=== PATIENT | male | born 1975 | race Hispanic/Latino ===

== ENCOUNTER 2019-07-20 05:22 | Emergency (ER) | payer SELFPAY ==
[2019-07-20 06:16] LABS: ALT/SGPT 21 U/L (12-78); AST/SGOT 15 U/L (15-37); Albumin 3.4 g/dL (3.4-5.0); Alkaline Phosphatase 93 U/L (45-117); BUN Blood Urea Nitrogen 10 mg/dL (7-18); Bicarbonate 29 mmol/L (21-32); Bilirubin Direct 0.1 mg/dL (0-0.2); Bilirubin Total 0.5 mg/dL (0.2-1.0); Glucose Level 170 mg/dL (74-106); Lipase 60 U/L (73-393); Potassium 3.8 mmol/L (3.5-5.1); Protein, Total 7.3 g/dL (6.4-8.2); Sodium Level 136 mmol/L (136-145)
[2019-07-20 06:24] LABS: Absolute Lymphocytes (CBC) 2.4 K/uL (0.7-4.9); Basophils % 0.6 % (0-1.3); Hematocrit 45.3 % (39.6-49.0); Lymphocytes % 24.4 % (15.3-44.8); MPV 7.6 fL (7.6-11.3); RBC Red Blood Cell Count 4.98 M/uL (4.33-5.43)
[2019-07-20] MEDS ORDERED: MORPHINE 4 MG/ML SYR ONE (06:29)
[2019-07-20] MEDS ORDERED: NA CHLORIDE 0.9% 1,000 ML ONE (06:29)
[2019-07-20] MEDS ORDERED: ONDANSETRON 4 MG/2 ML VIAL ONE (06:29)
[2019-07-20 06:59] LABS: Troponin I < 0.02 ng/mL (0.0-0.045)
--- NOTE | 2019-07-20 07:33 | ER ---
Nurse's Notes [facility] Name: Amari Mo Age: 44 yrs Sex: Male : 1975 Arrival Date: 07/20/2019 Time: 05:27 Bed 20 Private MD: Diagnosis: Unspecified abdominal pain;Gastritis, unspecified Presentation: 07/20 05:37 Presenting complaint: Patient states: pain in epigastric area that started Sunday, Pt states intermitent pain is now 10/10. Transition of care: patient was not received from another setting of care. Onset of symptoms was July 20, 2019. Risk Assessment: Do you want to hurt yourself or someone else? Patient reports no desire to harm self or others. Initial Sepsis Screen: Does the patient meet any 2 criteria? No. Patient's initial sepsis screen is negative. Does the patient have a suspected source of infection? Yes: Acute abdominal pain. Care prior to arrival: None. 05:37 Method Of Arrival: Ambulatory 05:37 Acuity: JHON 3 Historical: - Allergies: 05:40 Acetaminophen; - Home Meds: 05:40 None [Active]; - PMHx: 05:40 None; - PSHx: 05:40 None; - Immunization history:: Adult Immunizations up to date. - Social history:: Smoking status: Patient uses tobacco products, denies chronic smoking, but will smoke occasionally. - Ebola Screening: : Patient negative for fever greater than or equal to 101.5 degrees Fahrenheit, and additional compatible Ebola Virus Disease symptoms Patient denies exposure to infectious person. Screenin:39 Abuse screen: Denies threats or abuse. Denies injuries from another. Nutritional screening: No deficits noted. Tuberculosis screening: No symptoms or risk factors identified. Fall Risk None identified. Assessment: 05:40 General: Appears in no apparent distress. uncomfortable, Behavior is calm, cooperative, wh appropriate for age. Pain: Complains of pain in epigastric area Pain radiates to chest Pain currently is 10 out of 10 on a pain scale. Pain began a week ago. Neuro: Level of Consciousness is awake, alert, obeys commands, Oriented to person, place, time, situation, Appropriate for age. Cardiovascular: Heart tones S1 S2. Respiratory: Airway is patent Respiratory effort is even, unlabored, Respiratory pattern is regular, symmetrical. GI: Abdomen is flat, non-distended, Bowel sounds present X 4 quads. Abd is soft and non tender. : No signs and/or symptoms were reported regarding the genitourinary system. EENT: No signs and/or symptoms were reported regarding the EENT system. Derm: Skin is intact, is healthy with good turgor, Skin is pink, warm \T\ dry. normal. Musculoskeletal: Circulation, motion, and sensation intact. 07:10 Reassessment: Patient appears in no apparent distress at this time. Patient and/or em family updated on plan of care and expected duration. Pain level reassessed. Patient is alert, oriented x 3, equal unlabored respirations, skin warm/dry/pink. rates pain 4/10 Patient states feeling better. Patient states symptoms have improved. Vital Signs: 05:42 BP 121 / 75; Pulse 77; Resp 18; Temp 97.8; Pulse Ox 99% ; Weight 90.72 kg; Height 5 ft. 7 in. (170.18 cm); 06:15 BP 117 / 86; Pulse 70; Resp 17 S; Pulse Ox 99% on R/A; cc3 07:10 BP 116 / 77; Pulse 78; Resp 18; Pulse Ox 99% on R/A; Pain 4/10; em 05:42 Body Mass Index 31.32 (90.72 kg, 170.18 cm) ED Course: 05:27 Patient arrived in ED. es 05:36 Cindy Iqbal is Primary Nurse. cc3 05:39 Triage completed. 05:40 Patient has correct armband on for positive identification. Bed in low position. Call light in reach. Side rails up X 1. Pulse ox on. NIBP on. 05:42 Arm band placed on right wrist. wh 05:45 Inserted saline lock: 20 gauge in right antecubital area, using aseptic technique. cc3 Blood collected. 06:01 Perry Nicole NP is PHCP. pm1 06:02 Rudy Lira MD is Attending Physician. pm1 06:41 CT Abd/Pelvis - IV Contrast Only In Process Unspecified. EDMS 06:57 Report given to Dwayne. cc3 07:06 Dwayne Fitzpatrick LVN is Primary Nurse. em 07:55 No provider procedures requiring assistance completed. IV discontinued, intact, em bleeding controlled, No redness/swelling at site. Pressure dressing applied. Administered Medications: 06:40 Drug: NS 0.9% 1000 ml Route: IV; Rate: 1000 ml; Site: right antecubital; cc3 07:58 Follow up: IV Status: Order to discontinue infusion; IV Intake: 500ml em 06:40 Drug: morphine 4 mg {Note: RASS 0.} Route: IVP; Site: right antecubital; cc3 07:10 Follow up: Response: No adverse reaction; Pain is decreased; RASS: Alert and Calm (0) em 06:45 Drug: Zofran 4 mg Route: IVP; Site: right antecubital; cc3 07:10 Follow up: Response: No adverse reaction em 07:38 Drug: GI Cocktail without - (Maalox Suspension 30 ml, Lidocaine Liquid 2 % 15 em ml) Route: PO; 07:57 Follow up: Response: No adverse reaction; Pain is decreased em Intake: 07:58 IV: 500ml; Total: 500ml. em Outcome: 07:32 Discharge ordered by . pm1 07:55 Discharged to home ambulatory. em 07:55 Condition: good 07:55 Discharge instructions given to patient, Instructed on discharge instructions, follow up and referral plans. medication usage, Demonstrated understanding of instructions, follow-up care, medications, Prescriptions given X 2. 07:59 Patient left the ED. em Signatures: Dispatcher [employer] EDMarry Herron Edgar, BRUSH TRIMMING MACHINE SETTER BRUSH TRIMMING MACHINE SETTER em Perry Nicole NP BONDERIZER OPERATOR pm1 Bianca Cerna Charlene cc3
--- NOTE | 2019-07-20 07:33 | EDPHYS ---
Physician Documentation [facility] Name: Amari Mo Age: 44 yrs Sex: Male : 1975 Arrival Date: 07/20/2019 Time: 05:27 Bed 20 Private MD: ED Physician Rudy Lira HPI: 07/20 06:23 This 44 yrs old Male presents to ER via Ambulatory with complaints of pm1 Abdominal Pain. 06:23 The patient presents with abdominal pain in the epigastric area. Onset: The pm1 symptoms/episode began/occurred 1 week(s) ago. The symptoms do not radiate. Associated signs and symptoms: none. Pertinent negatives: nausea, vomiting, and diarrhea, dysuria, fever, shortness of breath. The symptoms are described as achy. Modifying factors: The symptoms are alleviated by nothing, the symptoms are aggravated by food. Severity of pain: in the emergency department the pain is unchanged. The patient has not experienced similar symptoms in the past. The patient has not recently seen a physician. Started as chest pain 1 week ago that is now in the epigastric and LUQ. Pain increased with eating. 06:23 Is no longer having any chest pain. Pain in the epigastric and LUQ area. pm1 Historical: - Allergies: 05:40 Acetaminophen; wh - Home Meds: 05:40 None [Active]; wh - PMHx: 05:40 None; wh - PSHx: 05:40 None; wh - Immunization history:: Adult Immunizations up to date. - Social history:: Smoking status: Patient uses tobacco products, denies chronic smoking, but will smoke occasionally. - Ebola Screening: : Patient negative for fever greater than or equal to 101.5 degrees Fahrenheit, and additional compatible Ebola Virus Disease symptoms Patient denies exposure to infectious person. ROS: 06:23 Constitutional: Negative for fever, chills, and weight loss, Eyes: Negative for injury, pm1 pain, redness, and discharge, ENT: Negative for injury, pain, and discharge, Neck: Negative for injury, pain, and swelling, Cardiovascular: Negative for chest pain, palpitations, and edema, Respiratory: Negative for shortness of breath, cough, wheezing, and pleuritic chest pain. 06:23 Back: Negative for injury and pain, : Negative for injury, bleeding, discharge, and swelling, MS/Extremity: Negative for injury and deformity, Skin: Negative for injury, rash, and discoloration, Neuro: Negative for headache, weakness, numbness, tingling, and seizure. 06:23 Abdomen/GI: Positive for abdominal pain, Negative for nausea, vomiting, and diarrhea. Exam: 06:23 Constitutional: This is a well developed, well nourished patient who is awake, alert, pm1 and in no acute distress. Head/Face: Normocephalic, atraumatic. Neck: Trachea midline, no thyromegaly or masses palpated, and no cervical lymphadenopathy. Supple, full range of motion without nuchal rigidity, or vertebral point tenderness. No Meningismus. Chest/axilla: Normal chest wall appearance and motion. Nontender with no deformity. No lesions are appreciated. Cardiovascular: Regular rate and rhythm with a normal S1 and S2. No gallops, murmurs, or rubs. Normal PMI, no JVD. No pulse deficits. Respiratory: Lungs have equal breath sounds bilaterally, clear to auscultation and percussion. No rales, rhonchi or wheezes noted. No increased work of breathing, no retractions or nasal flaring. 06:23 Back: No spinal tenderness. No costovertebral tenderness. Full range of motion. Skin: Warm, dry with normal turgor. Normal color with no rashes, no lesions, and no evidence of cellulitis. MS/ Extremity: Pulses equal, no cyanosis. Neurovascular intact. Full, normal range of motion. 06:23 Abdomen/GI: Inspection: abdomen appears normal, Bowel sounds: normal, Palpation: soft, mild abdominal tenderness, in the left upper quadrant, mass, is not appreciated, rebound tenderness, is not appreciated. 06:23 Neuro: Orientation: is normal, Motor: is normal, moves all fours. Vital Signs: 05:42 BP 121 / 75; Pulse 77; Resp 18; Temp 97.8; Pulse Ox 99% ; Weight 90.72 kg; Height 5 ft. wh 7 in. (170.18 cm); 06:15 BP 117 / 86; Pulse 70; Resp 17 S; Pulse Ox 99% on R/A; cc3 07:10 BP 116 / 77; Pulse 78; Resp 18; Pulse Ox 99% on R/A; Pain 4/10; em 05:42 Body Mass Index 31.32 (90.72 kg, 170.18 cm) wh MDM: 06:02 Patient medically screened. pm1 07:31 Data reviewed: vital signs. Data interpreted: Pulse oximetry: on room air is 99 %. pm1 Interpretation: normal. Counseling: I had a detailed discussion with the patient and/or guardian regarding: the historical points, exam findings, and any diagnostic results supporting the discharge/admit diagnosis, lab results, radiology results, the need for outpatient follow up, for definitive care, a md senior research scientist, to return to the emergency department if symptoms worsen or persist or if there are any questions or concerns that arise at home. 07:46 ED course: Patient stopped taking Zantac 1 month ago for symptoms similar to today's pm1 presentation. 07/20 05:39 Order name: Basic Metabolic Panel; Complete Time: 07:05 07/20 05:39 Order name: CBC with Diff; Complete Time: 07:05 07/20 05:39 Order name: Creatinine for Radiology; Complete Time: 06:15 07/20 05:39 Order name: Hepatic Function; Complete Time: 07:05 07/20 05:39 Order name: Lipase; Complete Time: 07:05 07/20 05:39 Order name: IV Saline Lock; Complete Time: 05:49 07/20 05:39 Order name: CT Abd/Pelvis - IV Contrast Only 07/20 06:15 Order name: EKG; Complete Time: 06:15 pm1 07/20 06:28 Order name: Troponin I; Complete Time: 07:05 EDPR 07/20 05:39 Order name: Labs collected and sent; Complete Time: 05:49 rn 07/20 06:15 Order name: EKG - Nurse/Tech; Complete Time: 06:49 pm1 Administered Medications: 06:40 Drug: NS 0.9% 1000 ml Route: IV; Rate: 1000 ml; Site: right antecubital; cc3 07:58 Follow up: IV Status: Order to discontinue infusion; IV Intake: 500ml em 06:40 Drug: morphine 4 mg {Note: RASS 0.} Route: IVP; Site: right antecubital; cc3 07:10 Follow up: Response: No adverse reaction; Pain is decreased; RASS: Alert and Calm (0) em 06:45 Drug: Zofran 4 mg Route: IVP; Site: right antecubital; cc3 07:10 Follow up: Response: No adverse reaction em 07:38 Drug: GI Cocktail without - (Maalox Suspension 30 ml, Lidocaine Liquid 2 % 15 em ml) Route: PO; 07:57 Follow up: Response: No adverse reaction; Pain is decreased em Disposition: 07/21 00:38 Co-signature as Attending Physician, Rudy Lira MD. rn Disposition: 07/20/19 07:32 Discharged to Home. Impression: Unspecified abdominal pain, Gastritis, unspecified. - Condition is Stable. - Discharge Instructions: Abdominal Pain, Adult, Gastritis, Adult. - Prescriptions for Pepcid 20 mg Oral Tablet - take 1 tablet by ORAL route every 12 hours for 10 days; 20 tablet. Tramadol 50 mg Oral Tablet - take 1 tablet by ORAL route every 8 hours as needed; 12 tablet. - Medication Reconciliation Form, Thank You Letter, Antibiotic Education, Prescription Opioid Use form. - Follow up: Emergency Department; When: As needed; Reason: Worsening of condition. Follow up: Private Physician; When: 2 - 3 days; Reason: Recheck today's complaints, Continuance of care, Re-evaluation by your physician. - Problem is new. - Symptoms have improved. Signatures: Dispatcher [employer] [facility] Dwayne Fitzpatrick, SENIOR STATISTICIAN SENIOR STATISTICIAN Rudy Mary MD MD rn Marinas, Patrick, CIGARETTE PACKER CIGARETTE PACKER pm1 Bianca Cerna Charlene cc3 Corrections: (The following items were deleted from the chart) 07/20 06:28 06:15 TROPONIN (EMERG DEPT USE ONLY)+C.LAB.BRZ ordered. [facility] 07:59 07:32 07/20/2019 07:32 Discharged to Home. Impression: Unspecified abdominal pain; em Gastritis, unspecified. Condition is Stable. Forms are Medication Reconciliation Form, Thank You Letter, Antibiotic Education, Prescription Opioid Use. Follow up: Emergency Department; When: As needed; Reason: Worsening of condition. Follow up: Private Physician; When: 2 - 3 days; Reason: Recheck today's complaints, Continuance of care, Re-evaluation by your physician. Problem is new. Symptoms have improved. pm1
[2019-07-20] MEDS ORDERED: LIDOCAINE VISCOUS 2% SOLN 15 ML UDC ONE (07:34)
[2019-07-20] MEDS ORDERED: MAGNE/ALUM HYDROXD 30 ML UCUP ONE (07:34)
[2019-07-20 08:07] VITALS: TEMP 97.8; O2SAT 99
[2019-07-20 08:10] VITALS: BP 116/77
--- NOTE | 2019-07-20 10:00 | EKG ---
Test Date: 2019-07-20 Test Time: 06:42:42 Director Asset: FRANCI MEASUREMENT RESULTS: Intervals: Rate: 69 MI: 142 QRSD: 86 QT: 370 QTc: 396 [place]: P: 44 MI: 142 QRS: 18 T: 41 INTERPRETIVE STATEMENTS: Normal sinus rhythm Normal ECG No previous ECG available for comparison Electronically Signed On 07-20-19 10:00:08 [employer]ER by J Carlos Kaplan
--- NOTE | 2019-07-21 10:49 | RAD REPORT ---
EXAM DESCRIPTION: CT - Abdomen Pelvis W Contrast - 07/20/2019 7:16 am CLINICAL HISTORY: 44-year-old male with intermittent epigastric abdominal pain TECHNIQUE: Axial CT imaging of the abdomen and pelvis was performed following the administration of intravenous contrast.. Sagittal and coronal reconstructed images were then performed. The CT stud y is performed according to ALARA (as low as reasonably achievable) or ALARA/IMAGE GENTLY, with autom atic adjustment of mA and/or kV according to patient size. Performed on: 07/20/2019 at 6:33 AM. COMPARISON: None FINDINGS: Lung bases: The lung bases are clear. Liver: The liver is normal in size and configuration. No focal hepatic abnormalities are identified. Liver attenuation is within normal limits. Spleen: The spleen is normal is size, configuration and attenuation. Gallbladder and bile duct: The gallbladder is well distended and unremarkable. There is no biliary ductal dilatation. Pancreas: The pancreas is grossly normal in size and configuration. Adrenal Glands: The adrenal glands are normal in size and configuration. Kidneys: The kidneys are normal in size and configuration. There is no evidence of hydronephrosis. Th ere is no evidence of nephrolithiasis. No definite solid or cystic renal mass lesions are identified. Stomach: The stomach is incompletely distended. Gastric wall thickness measures approximately 1.4 cm in diameter which is likely related to incomplete distention of the stomach. There is no definite hia micah hernia. Bowel: The bowel gas pattern is non specific and non obstructive. Appendix: The appendix is normal. Free air: There is no evidence of free air. Free fluid: There is no evidence of free fluid. Vasculature: The aorta is normal in caliber and contour. The inferior vena cava is grossly unremarkab le. Lymphadenopathy: No pathologic lymphadenopathy is identified. Bladder: The bladder is well distended and smooth in contour. Reproductive: The prostate gland is grossly within normal limits. Bones: No acute osseous abnormalities are identified. Soft tissues: No focal soft tissue abnormalities are identified. IMPRESSION: 1. Mild gastric wall thickening likely related to incomplete distention of the stomach. If clinical symptoms warrant, consider delayed imaging of the stomach with additional oral contrast. 2. Otherwise, unremarkable CT scan of the abdomen and pelvis. Electronically signed by: Hattie Butt DO 07/20/2019 7:01 AM DRAWBENCH OPERATOR Due to temporary technical issues with the PACS/Fluency reporting system, reports are being signed by the in house radiologist as a courtesy to ensure prompt reporting. The interpreting radiologist is f ully responsible for the content of the report.
== END 2019-07-20 07:59 | disposition home or self-care (01) ==
LOC: ER 05:22
DX: K29.70 Gastritis, unspecified, without bleeding (principal); Z72.0 Tobacco use; Z88.6 Allergy status to analgesic agent
CPT/HCPCS: 36415; 74177; 80048; 80076; 83690; 84484; 85025; 93005; 96361; 96374; 96375; 99284; J2405; J7030; Q9967

== ENCOUNTER 2020-08-12 22:08 | Emergency (ER) | payer SELFPAY ==
[2020-08-12] MEDS ORDERED: ONDANSETRON 4 MG/2 ML VIAL ONE (22:49)
[2020-08-12] MEDS ORDERED: NA CHLORIDE 0.9% 1,000 ML ONE (22:49)
[2020-08-12 23:07] LABS: Absolute Lymphocytes (CBC) 3.2 K/uL (0.7-4.9); Basophils % 1.3 % (0-1.3); Hematocrit 47.6 % (39.6-49.0); Lymphocytes % 32.7 % (15.3-44.8); RBC Red Blood Cell Count 5.26 M/uL (4.33-5.43)
[2020-08-12 23:31] LABS: BUN Blood Urea Nitrogen 8 mg/dL (7-18); Bicarbonate 30 mmol/L (21-32); Glucose Level 170 mg/dL (74-106); Potassium 3.6 mmol/L (3.5-5.1); Sodium Level 139 mmol/L (136-145); Troponin (Emerg Dept Use Only) < 0.02 ng/mL (0.0-0.045)
--- NOTE | 2020-08-13 00:22 | EDPHYS ---
Physician Documentation [facility] Name: Amari Mo Age: 45 yrs Sex: Male : 1975 Arrival Date: 08/12/2020 Time: 22:08 Bed 19 Private MD: ED Physician Rudy Lira HPI: 08/12 22:53 This 45 yrs old Male presents to ER via Ambulatory with complaints of rn Dizziness, Nausea/Vomiting, Headache. 22:53 The patient presents with dizziness, generalized weakness. rn 22:53 Onset: The symptoms/episode began/occurred 4 day(s) ago. Context: occurred at home. rn Modifying factors: The symptoms are alleviated by nothing, the symptoms are aggravated by nothing. Severity of symptoms: At their worst the symptoms were moderate in the emergency department the symptoms are unchanged. The patient has not experienced similar symptoms in the past. The patient has not recently seen a physician. Reports 4 days of generalized weakness, dizziness, malaise, muscle aches, nausea, fatigue and sleeping a lot. No chest pain or sob. No abd pain or diarrhea. No blood in stool. . - Immunization history:: Adult Immunizations up to date. - Family history:: not pertinent. - Social history:: Smoking status: Patient reports the use of cigarette tobacco products, smokes one-half pack cigarettes per day. - Hospitalizations: : No recent hospitalization is reported. ROS: 22:53 Constitutional: Negative for fever, chills, and weight loss, Eyes: Negative for injury, rn pain, redness, and discharge, ENT: Negative for injury, pain, and discharge, Neck: Negative for injury, pain, and swelling, Cardiovascular: Negative for chest pain, palpitations, and edema, Respiratory: Negative for shortness of breath, cough, wheezing, and pleuritic chest pain, Abdomen/GI: Negative for abdominal pain, diarrhea, and constipation, Back: Negative for injury and pain, : Negative for injury, bleeding, discharge, and swelling, MS/Extremity: Negative for injury and deformity, Skin: Negative for injury, rash, and discoloration, Neuro: Negative for numbness, tingling, and seizure. Exam: 22:53 Constitutional: This is a well developed, well nourished patient who is awake, alert, rn and in no acute distress, tearful Head/Face: Normocephalic, atraumatic. Eyes: Pupils equal round and reactive to light, extra-ocular motions intact. Lids and lashes normal. Conjunctiva and sclera are non-icteric and not injected. Cornea within normal limits. Periorbital areas with no swelling, redness, or edema. ENT: no stridor Neck: Trachea midline, no thyromegaly or masses palpated, and no cervical lymphadenopathy. Supple, full range of motion without nuchal rigidity, or vertebral point tenderness. No Meningismus. Cardiovascular: Regular rate and rhythm. No pulse deficits. Respiratory: No increased work of breathing, no retractions or nasal flaring. Abdomen/GI: soft, non-tender Skin: Warm, dry MS/ Extremity: Pulses equal, no cyanosis. Neurovascular intact. Full, normal range of motion. Equal circumference. Neuro: Awake and alert, GCS 15, oriented to person, place, time, and situation. Cranial nerves II-XII grossly intact. Motor strength 5/5 in all extremities. Sensory grossly intact. Cerebellar exam normal. 08/13 00:22 ECG was reviewed by the Attending Physician. rn Vital Signs: 08/12 22:22 BP 141 / 100; Pulse 79; Resp 18; Temp 97.5; Pulse Ox 100% ; Pain 0/10; cr4 22:23 BP 141 / 100; Pulse 89; Resp 18; Temp 97.5; Pulse Ox 100% on R/A; Pain 0/10; jv1 23:30 BP 133 / 80; Pulse 73; Resp 18; Temp 98.0; Pulse Ox 100% on R/A; Pain 0/10; jv1 08/13 00:29 BP 123 / 81; Pulse 72; Resp 18; Temp 98.2; Pulse Ox 100% on R/A; Pain 0/10; jv1 MDM: 08/12 22:18 Patient medically screened. rn 08/13 00:18 Differential diagnosis: generalized weakness, hypovolemia, idiopathic dizziness, COVID, rn viral syndrome. Data reviewed: vital signs, nurses notes, lab test result(s), radiologic studies, plain films, and as a result, I will discharge patient. Counseling: I had a detailed discussion with the patient and/or guardian regarding: the historical points, exam findings, and any diagnostic results supporting the discharge/admit diagnosis, lab results, radiology results, the need for outpatient follow up, to return to the emergency department if symptoms worsen or persist or if there are any questions or concerns that arise at home. Response to treatment: the patient's symptoms have markedly improved after treatment, and as a result, I will discharge patient. Special discussion: I discussed with the patient/guardian in detail that at this point there is no indication for admission to the hospital. It is understood, however, that if the symptoms persist or worsen the patient needs to return immediately for re-evaluation. 00:20 ED course: Systemic symptoms of viral syndrome, flu neg, cxr neg, will dc home as most rn likely covid given malaise, nausea, muscle aches, loss of taste. . 08/12 22:25 Order name: CBC with Diff; Complete Time: 00:08 rn 08/12 22:25 Order name: Basic Metabolic Panel; Complete Time: 00:08 rn 08/12 22:25 Order name: XRAY Chest (1 view) rn 08/12 22:25 Order name: Troponin (emerg Dept Use Only); Complete Time: 00:08 rn 08/12 22:25 Order name: Flu; Complete Time: 00:08 rn 08/12 22:25 Order name: COVID-19 rn 08/12 22:25 Order name: IV Start; Complete Time: 22:58 rn 08/12 22:25 Order name: EKG; Complete Time: 22:25 rn 08/12 22:25 Order name: EKG - Nurse/Tech; Complete Time: 22:58 rn EC:22 Rate is 70 beats/min. Rhythm is regular. QRS [place] is Normal. IA interval is normal. QRS rn interval is normal. QT interval is normal. No Q waves. T waves are Normal. No ST changes noted. Clinical impression: Normal ECG. Interpreted by me. Reviewed by me. Administered Medications: 08/12 22:55 Drug: NS 0.9% 1000 ml Route: IV; Rate: 1000 ml; Site: right antecubital; jv1 08/13 00:32 Follow up: Response: No adverse reaction jv1 00:33 Follow up: IV Status: Completed infusion j 08/12 23:00 Drug: Zofran (Ondansetron) 4 mg Route: IVP; Infused Over: 2 mins; Site: right jv1 antecubital; 23:30 Follow up: Response: No adverse reaction; Nausea is decreased jv1 Disposition: 08/13/20 00:21 Discharged to Home. Impression: Viral syndrome. - Condition is Stable. - Discharge Instructions: Dizziness, COVID-19. - Prescriptions for Zofran ODT 4 mg Oral tablet,disintegrating - place 1 tablet by TRANSLINGUAL route every 8 hours As needed; 20 tablet. - Medication Reconciliation Form, Thank You Letter, Antibiotic Education, Prescription Opioid Use form. - Follow up: Private Physician; When: As needed; Reason: Recheck today's complaints, Re-evaluation by your physician. - Problem is new. - Symptoms have improved. Signatures: Dispatcher [employer] EDMS Rudy Lira MD MD rn Vicente, Joyce, RN RN jv1 Corrections: (The following items were deleted from the chart) 08/13 00:59 00:21 08/13/2020 00:21 Discharged to Home. Impression: Viral syndrome. Condition is jv1 Stable. Forms are Medication Reconciliation Form, Thank You Letter, Antibiotic Education, Prescription Opioid Use. Follow up: Private Physician; When: As needed; Reason: Recheck today's complaints, Re-evaluation by your physician. Problem is new. Symptoms have improved. rn
--- NOTE | 2020-08-13 00:22 | ER ---
Nurse's Notes [facility] Name: Amari Mo Age: 45 yrs Sex: Male : 1975 Arrival Date: 08/12/2020 Time: 22:08 Bed 19 Private MD: Diagnosis: Viral syndrome Presentation: 08/12 22:23 Chief complaint: Patient states: he has been feeling chills, loss of taste, dizziness, jv1 fatigue, body malaise since Sunday. Coronavirus screen: Client denies travel out of the [place] in the last 14 days. Client presents with at least one sign or symptom that may indicate coronavirus-19. Standard/surgical mask placed on the client. Provider contacted for isolation considerations. Ebola Screen: No symptoms or risks identified at this time. Initial Sepsis Screen: Does the patient meet any 2 criteria? No. Patient's initial sepsis screen is negative. Does the patient have a suspected source of infection? No. Patient's initial sepsis screen is negative. Risk Assessment: Do you want to hurt yourself or someone else? Patient reports no desire to harm self or others. Onset of symptoms was August 09, 2020 at 20:00. Care prior to arrival: None. 22:23 Method Of Arrival: Ambulatory jv1 22:23 Acuity: JHON 3 jv1 Triage Assessment: 22:28 General: Appears in no apparent distress. Behavior is calm, cooperative, appropriate jv1 for age. Pain: Denies pain. 22:30 GI: Reports nausea, since sunday. jv1 - Immunization history:: Adult Immunizations up to date. - Family history:: not pertinent. - Social history:: Smoking status: Patient reports the use of cigarette tobacco products, smokes one-half pack cigarettes per day. - Hospitalizations: : No recent hospitalization is reported. Screenin:28 Abuse screen: Denies threats or abuse. Nutritional screening: No deficits noted. jv1 Tuberculosis screening: No symptoms or risk factors identified. Fall Risk None identified. Assessment: 22:29 General: Appears in no apparent distress. well groomed, well developed, Behavior is jv1 calm, cooperative, appropriate for age. Pain: Denies pain. Neuro: Level of Consciousness is awake, alert, obeys commands, Oriented to person, place, time, situation, Appropriate for age Acute Care Physical Therapist are equal bilaterally Moves all extremities. Cardiovascular: Denies chest pain, Heart tones S1 S2 present. Respiratory: Airway is patent Respiratory effort is even, unlabored, Respiratory pattern is regular, symmetrical. GI: Abdomen is round non-distended, Bowel sounds present X 4 quads. : No signs and/or symptoms were reported regarding the genitourinary system. EENT: No signs and/or symptoms were reported regarding the EENT system. Derm: Skin is intact, is healthy with good turgor. Musculoskeletal: No signs and/or symptoms reported regarding the musculoskeletal system. Circulation, motion, and sensation intact. Capillary refill < 3 seconds. 23:30 Reassessment: Patient appears in no apparent distress at this time. No changes from jv1 previously documented assessment. Patient and/or family updated on plan of care and expected duration. Pain level reassessed. Patient is alert, oriented x 3, equal unlabored respirations, skin warm/dry/pink. 08/13 00:25 Reassessment: provider in the room with pt. And provider said he ok to be discharged. jv1 00:28 Reassessment: Patient appears in no apparent distress at this time. No changes from jv1 previously documented assessment. Patient and/or family updated on plan of care and expected duration. Pain level reassessed. Patient is alert, oriented x 3, equal unlabored respirations, skin warm/dry/pink. Vital Signs: 08/12 22:22 BP 141 / 100; Pulse 79; Resp 18; Temp 97.5; Pulse Ox 100% ; Pain 0/10; cr4 22:23 BP 141 / 100; Pulse 89; Resp 18; Temp 97.5; Pulse Ox 100% on R/A; Pain 0/10; jv1 23:30 BP 133 / 80; Pulse 73; Resp 18; Temp 98.0; Pulse Ox 100% on R/A; Pain 0/10; jv1 12 00:29 BP 123 / 81; Pulse 72; Resp 18; Temp 98.2; Pulse Ox 100% on R/A; Pain 0/10; jv1 ED Course: 08/12 22:08 Patient arrived in ED. cl3 22:18 Rudy Lira MD is Attending Physician. rn 22:28 Triage completed. jv1 22:28 Arm band placed on right wrist. jv1 22:29 Patient has correct armband on for positive identification. Bed in low position. Call jv1 light in reach. Side rails up X2. 22:50 Initial lab(s) drawn, by me, sent to lab. Inserted saline lock: 20 gauge in right upper jp3 arm, using aseptic technique. Blood collected. Patient maintains SpO2 saturation greater than 95% on room air. 22:50 COVID swab sent to lab. Flu and/or RSV swab sent to lab. jp3 22:55 EKG done, by ED staff, reviewed by Rudy Lira MD. jp3 23:45 XRAY Chest (1 view) In Process Unspecified. EDMS 08/13 00:30 No provider procedures requiring assistance completed. IV discontinued, intact, jv1 bleeding controlled, No redness/swelling at site. Pressure dressing applied. Administered Medications: 08/12 22:55 Drug: NS 0.9% 1000 ml Route: IV; Rate: 1000 ml; Site: right antecubital; jv1 08/13 00:32 Follow up: Response: No adverse reaction jv1 00:33 Follow up: IV Status: Completed infusion jv1 08/12 23:00 Drug: Zofran (Ondansetron) 4 mg Route: IVP; Infused Over: 2 mins; Site: right jv1 antecubital; 23:30 Follow up: Response: No adverse reaction; Nausea is decreased jv1 Outcome: 08/13 00:21 Discharge ordered by MD. rn 00:30 Discharged to home ambulatory. jv1 00:30 Condition: stable 00:30 Discharge instructions given to patient, Instructed on discharge instructions, Demonstrated understanding of instructions, follow-up care. 00:59 Patient left the ED. jv1 Addendum: 08/17/2020 09:36 Addendum: COVID-19 Result: Negative result given to RN to notify pt. Unable to leave s v voice mail due to the number provided was either not a working number, the voice mail has not been set up, or the voice mailbox is full.. Signatures: Dispatcher [employer] [facility] Akosua Sheffield, RN Yary Gurrola RN RN cr4 Rudy Lira MD MD rn Pisarski, Jacob jp3 Maddie Coronado RN RN jv1 Lewis, Charde cl3
--- NOTE | 2020-08-13 10:28 | RAD REPORT ---
EXAM DESCRIPTION: RAD - Chest Single View - 08/12/2020 11:45 pm CLINICAL HISTORY: Viral syndrome COMPARISON: None. FINDINGS: Single frontal radiograph view of the chest. Cardiomediastinal silhouette: Normal size and contour. Lungs: No consolidation, pneumothorax, or pleural effusion. Bones: No acute osseous abnormality. Leads overlie the chest. Upper abdomen: No abnormality identified. IMPRESSION: 1. No acute pulmonary process identified. Electronically signed by: Mars Sandoval 08/13/2020 12:02 AM CLOTH EXAMINER MACHINE Due to temporary technical issues with the PACS/Fluency reporting system, reports are being signed by the in house radiologist without review as a courtesy to ensure prompt reporting. The interpreting r adiologist is fully responsible for the content of the report.
[2020-08-17 23:00] VITALS: O2SAT 100
[2020-08-17 23:05] VITALS: BP 123/81; TEMP 98.2
== END 2020-08-13 00:59 | disposition home or self-care (01) ==
LOC: ER 22:08
DX: B34.9 Viral infection, unspecified (principal); Z20.828 Contact with and (suspected) exposure to other viral communicable diseases; F17.210 Nicotine dependence, cigarettes, uncomplicated
CPT/HCPCS: 36415; 71045; 80048; 84484; 85025; 87804; 93005; 96361; 96374; 99284; J2405; J7030; U0002

== ENCOUNTER 2021-01-26 10:31 | Emergency (ER) | payer SELFPAY ==
--- NOTE | 2021-01-26 11:23 | ER ---
Nurse's Notes [facility] Name: Amari Mo Age: 45 yrs Sex: Male : 1975 Arrival Date: 01/26/2021 Time: 10:34 Bed External Waiting Private MD: Diagnosis: Presentation: 01/26 10:42 Note no answer from the lobby at this time. em 10:55 Note number provided does not work to reach pt. em ED Course: 10:34 Patient arrived in ED. mr 10:57 Douglas Andres PA is PHCP. jerrell 10:57 Luis Armando Prince MD is Attending Physician. jerrell Administered Medications: No medications were administered Outcome: 11:22 Patient left the ED. em Signatures: Douglas Andres PA PA jmm Rivera, Mary mr Munoz, Edgar, RN RN em
== END 2021-01-26 11:22 | disposition left against medical advice (07) ==
LOC: ER 10:31
DX: Z02.9 Encounter for administrative examinations, unspecified (principal)